=== PATIENT | male | born 1955 | race American Indian/Alaskan Native ===

== ENCOUNTER 2017-04-11 09:25 | Day surgery (SDC) | payer OTHER ==
[2017-04-11] MEDS ORDERED: NACL 0.9% 1000 ML 1,000 ML ONE (10:05)
[2017-04-11] MEDS ORDERED: NACL 0.9% 1000 ML 1,000 ML IV SCH (11:00)
--- NOTE | 2017-04-11 11:06 | Anesthesia Consultation ---
Anesthesia Consult and Med Hx Date of service: 04/11/17 - Airway Anesthetic Teeth Evaluation: Chipped (lower right molars) ROM Head & Neck: Adequate Mental/Hyoid Distance: Adequate Mallampati Class: Class II Intubation Access Assessment: Probably Good - Pulmonary Exam CTA: Yes - Cardiac Exam Cardiac Exam: RRR - Pre-Operative Health Status ASA Pre-Surgery Classification: ASA2 Proposed Anesthetic Plan: MAC - Pulmonary Hx Smoking: Yes (1 pack will last 2 weeks) Hx Sleep Apnea: No - Cardiovascular System Hx Hypertension: No - Central Nervous System Hx Neuromuscular Disorder: No Hx Seizures: No CVA: No Hx Psychiatric Problems: No - Endocrine Hx Renal Disease: No Hx Thyroid Disease: No - Other Systems Hx Alcohol Use: Yes (2-3 X WEEKLY) Hx Substance Use: No Hx Cancer: No
--- NOTE | 2017-04-11 11:06 | Anesthesia Day of Surgery ---
Anesthesia Day of Surgery - Day of Surgery Patient Examined: Yes Patient is NPO: Yes
[2017-04-11] MEDS ORDERED: DIPRIVAN 10 MG/ML IV ONE ×4 (12:53→13:52)
[2017-04-11] MEDS ORDERED: WATER FOR IRRIG STERILE IR ONE (13:01)
--- NOTE | 2017-04-11 13:50 | Post Anesthesia Evaluation ---
- Post Anesthesia Evaluation Patient Participated: Yes Airway Patent: Yes Stable Respiratory Function: Yes Nausea/Vomiting: No Temp > 96.8F: Yes Pain Manageable: Yes Adequeate Hydration: Yes Anesthesia Complications: No Block Receding Appropriately: Not Applicable Patient on Ventilator: No
--- NOTE | 2017-04-11 14:12 | Operative Report ---
Operative Report Operative Report: Date of procedure: 04/11/2017 Procedure: Colonoscopy with multiple snare polypectomies, multiple hot biopsy polypectomies, multiple polyp ablations, multiple submucosal injections.. Attending physician: Matti Manley MD Balance Assembler: Matti Manley MD Indication: Patient is a 61-year-old male who presents for screening colonoscopy. Patient has a past history of colon polyps. His last colonoscopy was 5 years ago. A colonoscopy serves to evaluate patient for colorectal cancer screening so that treatment may be directed based on the findings. Consent: Informed consent was obtained after advising the patient and family regarding nature of this procedure, its indications, potential benefits as well as possible complications including but not limited to bleeding perforation and adverse reaction to medication, infection as well as other cardiopulmonary complications. An informed written and verbal consent was then obtained after due opportunity was provided for questions and answers. Monitoring: Patient was monitored continuously with pulse oximetry and electrocardiographic recordings as well as blood pressure recordings. Vital signs remained stable throughout this procedure with no untoward events. Preoperative assessment: Patient was assessed immediately prior to this procedure for capacity to tolerate monitored anesthesia care and moderate sedation as well as general anesthesia. Patient's ASA classification is 2, Mallampati class is 2, Hyomental distance is 3. Instrument: [email or web address] video colonoscope Medications: Propofol given intravenously in divided doses. For details please refer to anesthesia records. Description of procedure: Patient was placed in the left lateral decubitus position after achieving sedation, a digital rectal examination was performed following which the colonoscope was introduced into the anal verge and advanced to the cecum which was identified by the cecal valve, the appendiceal orifice, as well as by the cecal strap and direct transillumination. The colonoscope was subsequently withdrawn with careful inspection of all mucosal surfaces. Patient tolerated this procedure well and was subsequently taken to the recovery room. The following findings were noted. Findings: The proximal colon was poorly prepped. There was substantial retained stool seen in the cecum and the ascending colon. In the ascending colon, patient had 4 polyps. The smallest polyps measured about 8 mm. It was semi-pedunculated and removed by snare electrocautery. There were 3 additional polyps. One was about 1.5 cm on a broad base. This was elevated with submucosal injection of saline and removed by snare electrocautery and retrieved. There was another sessile polyp which measured approximately 1 cm which was removed by snare electrocautery and retrieved. There was a semi- pedunculated 1 cm polyp which was removed snare electrocautery and retrieved. The transverse colon was otherwise unremarkable. The descending colon was normal. In the sigmoid colon, patient had one diminutive polyp that was ablated. There were 3 additional sessile polyps that were removed by hot biopsy polypectomy and retrieved. In the rectum, patient hasn't densely adherent stool in sections of the rectum. There were 5 sessile polyps measuring approximately 6 mm to 8 mm. These were all removed by hot biopsy polypectomy and retrieved. There were additional 11 polyps that were flat and broad based. All of these were completely ablated. On the retroflex view at the anal verge, patient had internal hemorrhoids. Impression: Multiple ascending colon polyps status post snare electrocautery. Substantial retained stool in the ascending colon. Sigmoid colon polyp status post hot biopsy polypectomy. Sigmoid colon polyp status post ablation Multiple rectal polyps status post hot biopsy polypectomy. Multiple rectal polyps status post ablation. Internal hemorrhoids. Internal hemorrhoids. Plan: Follow pathology report High-fiber diet. Repeat colonoscopy in 1 year due to poor colonoscopic preparation
--- NOTE | 2017-04-11 14:13 | Discharge Summary ---
Short Stay Discharge Plan Activity: advance as tolerated Weight Bearing Status: Weight Bear as Tolerated Diet: regular Additional Instructions: Post Sedation D/C Instructions When you return home you may resume your regular diet unless otherwise directed. -Go directly home from the hospital and rest quietly. You may resume normal activities tomorrow. -Do NOT drive, return to work, operate any machinery or make any important personal or business decisions today. - Do NOT drink any alcohol or take nerve or sleeping drugs. They add to the effects of the medicine still present in your body.
[2017-04-11 14:29] VITALS: BP 124/77
== END 2017-04-11 09:26 | disposition home or self-care (01) ==
LOC: GIO 09:25
PROVIDERS: ATTEND Internal Medicine Gastroenterology
DX: Z09 Encounter for follow-up examination after completed treatment for conditions other than malignant neoplasm (principal); D12.2 Benign neoplasm of ascending colon; K63.5 Polyp of colon; K62.1 Rectal polyp; K64.8 Other hemorrhoids; F17.210 Nicotine dependence, cigarettes, uncomplicated
CPT/HCPCS: 45381; 45384; 45385; 45388; 88305; J2704; J7030